=== PATIENT | male | born 1970 | race Caucasian/White ===

== ENCOUNTER 2016-12-20 | Emergency (ER) | payer SELFPAY | END 2016-12-20 03:52 | disposition home or self-care (01) | LOC: FER | DX: S01.412A Laceration without foreign body of left cheek and temporomandibular area, initial encounter (principal); S05.12XA Contusion of eyeball and orbital tissues, left eye, initial encounter; Z23 Encounter for immunization; Y08.89XA Assault by other specified means, initial encounter; Y92.410 Unspecified street and highway as the place of occurrence of the external cause | CPT/HCPCS: 70150; 70486; 73080; 90471; 90715 ==